=== PATIENT | female | born 1965 | race Caucasian/White ===

== ENCOUNTER 2016-08-21 08:26 | Day surgery (SDC) | payer OTHER ==
[~2016-08-21 08:26] MED LIST: RINGERS SOLUTION,LACTATED 1,000 ML IV PRN
[2016-08-21 08:48] LABS: Hematocrit 41.9 % (37.0-47.0); Hemoglobin 13.9 gm/dL (12.5-16.0); Mean Cell Volume 88.8 fl (78-100); Mean Corpuscular Hemoglobin 29.4 pg (27-31); Mean Corpuscular Hgb Conc 33.2 g/dl (32-36); Mean Platelet Volume 9.4 fl (6.0-9.5); Neutrophil # 4.8 K/mm3 (1.3-6.0); Neutrophil % 61.4 % (42-75.0); Platelet Count 313 K/mm3 (150-450); Red Blood Count 4.72 M/mm3 (4.2-5.4); Red Cell Distribution Width 11.9 % (11.5-14.0); White Blood Count 7.8 K/mm3 (4.0-10.5)
[2016-08-21] MEDS ORDERED: RINGERS SOLUTION,LACTATED 1,000 ML IV ONE (09:09)
[2016-08-21] MEDS ORDERED: oxyCODONE HCL/ACETAMINOPHEN 1 TAB TABLET PO PRN (10:23)
[2016-08-21] MEDS ORDERED: IBUPROFEN 600 MG TABLET PO PRN (10:24)
--- NOTE | 2016-08-21 10:24 | OR ---
Operative Report - Dictated Report Narrative: Operative Report 08/21/16 Hysteroscopy Dilatation and Curettage Preoperative Diagnosis: Menometrorrhagia Postoperative Diagnosis: Menometrorrhagia Procedure: Hysteroscopy Dilatation and Curettage Surgeon: Zehra Gaytan M.D. Anesthesia: Trevon Morrow PATCH PRESS OPERATOR, IV sedation Findings: Uterine sound 9 cm. Patient bleeding at the time of surgery. Small 1 cm submucosal fibroid on the posterior aspect of the endometrium. No evidence of polyp Fluids: 350 ml EBL: Minimal Drains: None Complications: None Condition: Stable Pathology: Endometrial curettings Procedure: The patient was taken to the operating room with IV fluids running. She was placed in the dorsal lithotomy position after anesthesia was induced. A bivalve speculum was placed in the vagina. The anterior lip of the cervix was grasped with a single-tooth tenaculum. Uterine sound was passed into the endometrial cavity with ease. Uterine sound was 9 cm. The cervix was dilated with Shant dilators. The hysteroscope was introduced into the endometrial cavity. The cavity was distended with normal saline. [place] were visualized bilaterally. Small 1 cm submucosal fibroid visualized on the posterior aspect of the endometrium. The hysteroscope was removed. The cavity was sharply curetted without difficulty. The hysteroscope was once again introduced into the cavity. Again, fibroid was visualized. The cavity was completely curetted. The hysteroscope was removed. The single-tooth tenaculum was removed. Sites were hemostatic. The speculum was removed from the vagina. Sponge counts were correct 2. The patient tolerated the procedure well.
[2016-08-21 11:23] VITALS: BP 110/68
== END 2016-08-21 08:27 | disposition home or self-care (01) ==
LOC: AMB 08:26
PROVIDERS: ATTEND Obstetrics & Gynecology
PROC: 0UDB8ZX Extraction of Endometrium, Via Natural or Artificial Opening Endoscopic, Diagnostic (ICD-10-PCS; principal; 2016-08-21 09:30)
DX: D25.0 Submucous leiomyoma of uterus (principal); N92.1 Excessive and frequent menstruation with irregular cycle; E66.9 Obesity, unspecified; Z68.34 Body mass index [BMI] 34.0-34.9, adult; Z87.891 Personal history of nicotine dependence

== ENCOUNTER 2016-12-23 14:38 | Emergency (ER) | payer OTHER ==
[2016-12-23 14:48] VITALS: BP 143/79
--- OUTSIDE RECORDS SUMMARY | 2016-12-23 14:56 | XMS REPORT | Continuity of Care Document ---
:1965 Author Organization [facility] ([facility]) Address [address] [place] [address] Phone [phone] Care Team Providers Name Role Phone Javier Moreland Primary Care Provider [phone] Source Comments This disclosure is being made pursuant to the Care Everywhere program, applicable federal and state laws, and may not contain all informaitonavailable regarding this patient.[facility] ([facility]) Active Allergies and Adverse Reactions Allergen Noted Date Severity Reactions Comments Other Agent 12/18/2012 OTHER "all antidepressants" Sulfa (Sulfonamide 12/29/2012 OTHER Her lymph nodes swell up. Antibiotics) Tetracycline 12/18/2012 OTHER Swelling Current Medications Prescription Sig. Disp. Refills Start Date End Date Status albuterol 90 Use 2 Puffs by 1 Inhaler 2 12/29/2012 Active mcg/Actuation inhaler inhalation every 6 hours as needed. Indications: cough beclomethasone (QVAR) Use 1 Puff by 1 Inhaler 1 12/29/2012 Active 80 mcg/Actuation inhalation 2 times inhaler daily. Indications: cough/SOBOE albuterol 2.5 mg/3 mL Use 3 mL by 1 Package 3 12/29/2012 Active inhalation solution inhalation every 6 hours as needed. Indications: cough/SOBOE omeprazole 20 mg Take 1 Cap by 60 Cap 3 02/17/2013 Active extended release mouth daily. capsule Indications: HEARTBURN Active Problems Problem Noted Date Cough with sputum 12/29/2012 SOBOE (shortness of breath on exertion) 12/29/2012 Healthcare maintenance 12/29/2012 Health education/counseling 12/29/2012 Most Recent Encounters Date Type Specialty Providers Description 10/02/2016 Lab Requisition Pathology Lab Services, [facility] Dx: Lipoma of right lower extremity Social History Tobacco Use Types Packs/Day Years Used Date Former Smoker Cigarettes Quit: 05/11/2008 Smokeless Tobacco: Never Used Tobacco Cessation:Counseling Given: Yes Comments:occ smoked Alcohol Use Drinks/Week oz/Week Comments No Last Filed Vital Signs Vital Sign Reading Time Taken Blood Pressure 134/82 06/01/2013 1:28 PM RN ANESTHESIOLOGY Pulse 81 06/01/2013 1:28 PM RN ANESTHESIOLOGY Temperature 37 C (98.6 F) 06/01/2013 1:28 PM RN ANESTHESIOLOGY Respiratory Rate 14 12/18/2012 10:47 AM CDT Height 1.554 m (5' 1.18") 05/11/2013 8:28 AM CDT Weight 87.2 kg (192 lb 3.9 oz) 06/01/2013 1:28 PM RN ANESTHESIOLOGY Body Mass Index 36.11 06/01/2013 1:28 PM RN ANESTHESIOLOGY Oxygen Saturation 99% 12/18/2012 10:47 AM CDT Plan of Care Patient Goal Type Goal Diet Reduce sugar intake Increase water intake Health Maintenance Due Date Last Done Comments Hepatitis B Vaccine (1 of 3 - 1965 Primary Series) Tdap Vaccine 1974 MMR Vaccine 1981 Cervical Cancer Screening 1993 Colonoscopy 08/04/2013 Mammogram 02/17/2014 02/17/2013, 08/15/2012, 08/15/2011 Influenza Vaccine: Seasonal (#1) 02/13/2016 Lipid Disorder Screening 12/29/2017 12/29/2012 Td Vaccine 01/21/2018 01/22/2008 HCV Screening Completed 02/17/2013 Results from Last 3 Months DERMATOPATHOLOGY EXAM (09/28/2016 4:13 PM) Component Value Range Case Report Surgical Pathology Case: [id number] Authorizing Provider:Lab Services, [facility] Collected: 09/28/2016 04:13 PM Pathologist: Selina Mathews MD Received:10/02/2016 04:13 PM Specimen:Tissue, specify, R anterior proximal thigh Diagnosis Skin, R anterior proximal thigh, excision: Angiolipoma I have personally reviewed this case and edited the report as necessary. Clinical Information Tissue source/site: Skin - excision - R anterior proximal thigh. Pertinent clinical history and findings: 2 cm soft moveable subcutaneous tumor. Clinical differential diagnosis: Lipoma. Gross Description A.Received in formalin, in a container labeled Carli Elizabeth, date of , and "R anterior proximal thigh", is a 2.3 x 1.9 x 1.5 cm yellow-santamaria, firm, ovoid shaped soft tissue mass. The exte rnal surface is smooth and entirely inked blue.The cut surfaces are yellow-santamaria, glistening without evidence of hemorrhage or necrosis. Returns Clerk sections are submitted in A1-A2. ESF/rls Microscopic Description Sections show a normal epidermis and dermis associated with a subcutaneous proliferation of benign lipocytes with a loss of the normal lobular growth pattern associated with thin-walled blood vesselsand focal thrombosis. Specimen Skin - Tissue, specify
[2016-12-23] MEDS ORDERED: METHYLPREDNISOLONE SOD SUCC/PF 40 MG/ML VIAL IV ONE (14:57)
[2016-12-23] MEDS ORDERED: diphenhydrAMINE HCL 50 MG CAPSULE PO ONE ×2 (14:58→15:03)
[2016-12-23] MEDS ORDERED: METHYLPREDNISOLONE SOD SUCC/PF 40 MG/ML VIAL IM ONE (15:02)
[2016-12-23] MEDS ORDERED: METHYLPREDNISOLONE SOD SUCC/PF 125 MG/2 ML VIAL ONE (15:03)
--- NOTE | 2016-12-23 15:49 | ERNOTE ---
Integumentary HPI - Narrative Date of Service: 12/23/16 - General Presenting Symptoms: rash Time Seen by Provider: 12/23/16 14:51 Exam Limitations: no limitations - Immun/Allergies/Home Medications Immunizations: IMMUNIZATION HX Immunizations Up to Date Yes History of Influenza Vaccine More Information Required Hx Pneumococcal Vaccination More Information Required Allergies/Adverse Reactions: Allergies Allergy/AdvReac Type Severity Reaction Status Date / Time Sulfa (Sulfonamide Allergy Severe Anaphylaxis Verified 12/23/16 14:48 Antibiotics) venlafaxine HCl Allergy Severe Anaphylaxis Verified 12/23/16 14:48 [From Effexor] doxycycline Allergy Intermediate Hives Verified 12/23/16 14:48 tetracycline [Tetracycline] Allergy Intermediate Hives Verified 12/23/16 14:48 lidocaine Allergy Verified 12/23/16 14:48 sulfamethoxazole Allergy Verified 12/23/16 14:48 [From Bactrim] trimethoprim [From Bactrim] Allergy Verified 12/23/16 14:48 procaine HCl [From Novocain] AdvReac Intermediate Vomiting Verified 12/23/16 14: 48 Home Medications: HOME MEDICATIONS Calcium/Magnesium/Zinc [Cixyfxr-Rjferefgd-Rrwe Tablet] 2 tab PO DAILY 08/16/16 [ Last Taken Unknown] Multivitamin [One Daily Essential] 1 each PO DAILY 08/16/16 [Last Taken Unknown] Ibuprofen [Motrin] 600 mg PO Q6H PRN #30 tab 08/21/16 [Last Taken Unknown] predniSONE [Prednisone] 50 mg PO DAILY #5 tablet 12/23/16 [Last Taken Unknown] - History of Present Illness Narrative: 51-year-old female presents to the emergency room for a rash that started on her neck has now spread across her chest and into her right arm and before meals area. Patient states she also has a under her eyes and both her ears. She states that she did have a thyroid biopsy on Saturday on the right side of her neck, and this is where the rash didn't start. She also states that she think that she has had poison kayleen or poison sumac contact. Date (Duration): 12/23/16 Location: Reports: neck, facial, upper extremity Quality: Reports: itching Severity: mild Exposure: Reports: poison kayleen/oak Modifying Factors - (Improves): Reports: nothing Modifying Factors - (Worsens): Reports: scratching Associated Symptoms: Reports: rash, change in skin texture. Denies: fever Review of Systems - Review of Systems Constitutional: Present: See HPI EYE: Present: no symptoms reported ENT: Present: no symptoms reported Respiratory: Present: no symptoms reported Cardiology: Present: no symptoms reported Gastrointestinal/Abdominal: Present: no symptoms reported Genitourinary: Present: no symptoms reported Musculoskeletal: Present: no symptoms reported Skin: Present: See HPI, rash, change in color Neurological: Present: no symptoms reported Endocrine: Present: no symptoms reported Hematologic/Lymphatic: Present: no symptoms reported Psych: Present: no symptoms reported All Other Systems: All systems neg except as marked - Patient's Past Medical History Patient History - Medical: Other Patient History - Cardiac/Respiratory: No pertinent hx Patient History - Cancer: No Hx of Cancer Patient History - Surgical Procedures: , D & C, T & A, Other Patient History - Other: None LMP (Calendar): 05/30/16 - Family History Mother Family History - Medical: No pertinent hx Family History - Cardiac/Respiratory: No pertinent hx Family History - Cancer: No pertinent family hx - Social History Living Situations: spouse Abuse History: No History of abuse Psych History: No pertinent hx Smoking Status: Never smoker Alcohol Use: none Drug Use: none - Immunizations Immunizations Up to Date: Yes Hx Pneumococcal Vaccination: More Information Required to Determine History of Influenza Vaccine: More Information Required to Determine Physical Exam - Physical Exam Narrative: This patient has a red rash across her neck and chest 2 spots on her face right before meals on her arm and along her right bicep. Rash is red raised and firm. Patient feels it is consistent with the last time she had poison kayleen. General Appearance: Present: wd/wn, alert, no apparent distress Eye Exam: Normal inspection: bilateral Ears, Nose, Throat: Present: normal ENT inspection Neck: Present: nontender, supple, full range of motion, other - rash Respiratory: Present: no respiratory distress, normal breath sounds, no accessory muscle use, chest nontender, lungs clear. Absent: respiratory distress, crackles, rales, rhonchi, stridor, wheezing Cardiovascular/Chest: Present: regular rate, rhythm, no murmur, normal peripheral pulses Gastrointestinal/Abdominal: Present: normal bowel sounds, nontender, nondistended, soft, no organomegaly Rectal Exam: Present: nontender, normal rectal tone Back Exam: Present: normal inspection, normal range of motion, no CVA tenderness , no vertebral tenderness Extremity Exam: Present: normal inspection, non-tender, normal range of motion Neurological Exam: Present: alert, oriented, normal mood/affect, no motor/ sensory deficits Skin Exam: Present: skin rash Lymphatic Exam: Present: no adenopathy ED Progress - Vital Signs Patient's Vital Signs:: I have reviewed the patient's vital signs. Vital Signs: Vital Signs 12/23/16 14:40 Temperature 36.7 C Pulse Rate 65 Respiratory 16 Rate Blood Pressure 143/79 O2 Sat by Pulse 97 Oximetry - Progress/Reassessment Chief Complaint: Rash Progress:: Improved Plan - Plan Plan: Patient states that after medication she does feel better the rash has dissipated from her face and it is no longer as itchy. Departure Clinical Impression: Poison kayleen dermatitis - Departure Disposition: Home Follow Up Needed Condition: Stable Instructions: Poison Kayleen Dermatitis Additional Instructions: Continue previous medications as prescribed. Take all medications as prescribed. Return to the emergency rooms if symptoms return or persist. She may take [id number] Benadryl as needed for itching. Follow up with her primary care provider in the next few days if needed. Referrals: Gabriel Ibarra MD [Primary Care Provider] - Prescriptions: predniSONE [Prednisone] 50 mg PO DAILY #5 tablet
== END 2016-12-23 15:44 | disposition home or self-care (01) ==
LOC: ER 14:38
DX: L23.7 Allergic contact dermatitis due to plants, except food (principal)

== ENCOUNTER 2016-12-26 10:46 | Emergency (ER) | payer OTHER ==
[2016-12-26 10:54] VITALS: BP 148/79
[2016-12-26] MEDS ORDERED: diphenhydrAMINE HCL 50 MG/ML VIAL IV ONE (11:05)
[2016-12-26] MEDS ORDERED: DEXAMETHASONE SOD PHOSPHATE 10 MG/ML VIAL IV ONE (11:05)
[2016-12-26] MEDS ORDERED: FAMOTIDINE 10 MG/ML VIAL IV ONE ×2 (11:05→11:10)
[2016-12-26] MEDS ORDERED: diphenhydrAMINE HCL 50 MG/ML VIAL ONE (11:09)
[2016-12-26] MEDS ORDERED: DEXAMETHASONE SOD PHOSPHATE 10 MG/ML VIAL ONE (11:09)
[2016-12-26 11:21] LABS: Hematocrit 40.8 % (37.0-47.0); Hemoglobin 13.8 gm/dL (12.5-16.0); Mean Cell Volume 87.4 fl (78-100); Mean Corpuscular Hemoglobin 29.6 pg (27-31); Mean Corpuscular Hgb Conc 33.8 g/dl (32-36); Mean Platelet Volume 9.9 fl (6.0-9.5); Neutrophil # 15.7 K/mm3 (1.3-6.0); Neutrophil % 80.7 % (42-75.0); Platelet Count 317 K/mm3 (150-450); Red Blood Count 4.67 M/mm3 (4.2-5.4); Red Cell Distribution Width 13.7 % (11.5-14.0); White Blood Count 19.4 K/mm3 (4.0-10.5)
[2016-12-26 11:37] LABS: Albumin * 3.5 gm/dl (3.4-5.0); Anion Gap 12.9 mmol/L (6.8-13.8); BUN/Creatinine Ratio 21.3 (9.0-21.6); Bilirubin, Total 0.3 mg/dL (0.0-1.1); Calcium * 8.9 mg/dL (7.9-10.9); Carbon Dioxide 27.8 mmol/L (24-32.6); Potassium 3.7 mmol/L (3.4-4.6); Total Protein 6.9 gm/dL (6.2-8.2)
--- OUTSIDE RECORDS SUMMARY | 2016-12-26 11:42 | XMS REPORT | Continuity of Care Document ---
:1965 Author Organization [facility] ([facility]) Address [address] [place] [address] Phone [phone] Care Team Providers Name Role Phone Javier Moreland Primary Care Provider [phone] Source Comments This disclosure is being made pursuant to the Care Everywhere program, applicable federal and state laws, and may not contain all informaitonavailable regarding this patient.[facility] ([facility]) Active Allergies and Adverse Reactions Allergen [...] Description 10/02/2016 Lab Requisition Pathology Lab Services, [facility] Dx: Lipoma of right lower extremity Social History Tobacco Use Types Packs/Day Years Used Date Former Smoker Cigarettes Quit: 05/11/2008 Smokeless Tobacco: Never Used Tobacco Cessation:Counseling Given: Yes Comments:occ smoked Alcohol Use Drinks/Week oz/Week Comments No Last Filed Vital Signs Vital Sign Reading Time Taken Blood Pressure 134/82 06/01/2013 1:28 PM CHIEF DIGITAL OFFICER Pulse 81 06/01/2013 1:28 PM CHIEF DIGITAL OFFICER Temperature 37 C (98.6 F) 06/01/2013 1:28 PM CHIEF DIGITAL OFFICER Respiratory Rate 14 12/18/2012 10:47 AM CDT Height 1.554 m (5' 1.18") 05/11/2013 8:28 AM CDT Weight 87.2 kg (192 lb 3.9 oz) 06/01/2013 1:28 PM CHIEF DIGITAL OFFICER Body Mass Index 36.11 06/01/2013 1:28 PM CHIEF DIGITAL OFFICER Oxygen Saturation 99% 12/18/2012 10:47 AM CDT [...] Value Range Case Report Surgical Pathology Case: [id number] Authorizing Provider:Lab Services, [facility] Collected: 09/28/2016 04:13 PM Pathologist: Selina Mathews [...] glistening without evidence of hemorrhage or necrosis. Offset Assistant Press Operator sections are submitted in A1-A2. ESF/rls Microscopic Description Sections show a normal epidermis and dermis associated with a subcutaneous proliferation of benign lipocytes with a loss of the normal lobular growth pattern associated with thin-walled blood vesselsand focal thrombosis. Specimen Skin - Tissue, specify
--- NOTE | 2016-12-26 11:44 | ERNOTE ---
Date of Service: 12/26/16 Time Seen by Provider: 12/26/16 10:56 Stated Complaint: REACTION TO LIDOCAINE - RASH, CANT SPEAK Source: patient Exam Limitations: no limitations Immunizations: IMMUNIZATION HX Immunizations Up to Date Yes History of Influenza Vaccine More Information Required Hx Pneumococcal Vaccination More Information Required Allergies/Adverse Reactions: Allergies Sulfa (Sulfonamide Antibiotics) Allergy (Severe, Verified 12/26/16 10:54) Anaphylaxis venlafaxine HCl [From Effexor] Allergy (Severe, Verified 12/26/16 10:54) Anaphylaxis doxycycline Allergy (Intermediate, Verified 12/26/16 10:54) Hives tetracycline [Tetracycline] Allergy (Intermediate, Verified 12/26/16 10:54) Hives lidocaine Allergy (Verified 12/26/16 10:54) sulfamethoxazole [From Bactrim] Allergy (Verified 12/26/16 10:54) trimethoprim [From Bactrim] Allergy (Verified 12/26/16 10:54) procaine HCl [From Novocain] Adverse Reaction (Intermediate, Verified 12/26/16 10:54) Vomiting SWEATING, MIGRANE Home Medications: HOME MEDICATIONS Calcium/Magnesium/Zinc [Gjppsel-Myylbgnhl-Eyxl Tablet] 2 tab PO DAILY 08/16/16 [ Last Taken Unknown] Multivitamin [One Daily Essential] 1 each PO DAILY 08/16/16 [Last Taken Unknown] Ibuprofen [Motrin] 600 mg PO Q6H PRN #30 tab 08/21/16 [Last Taken Unknown] predniSONE [Prednisone] 50 mg PO DAILY #5 tablet 12/23/16 [Last Taken Unknown] Famotidine [Pepcid] 40 mg PO BID #30 tablet 12/26/16 [Last Taken Unknown] predniSONE [Prednisone] See Taper PO DAILY #21 tablet 12/26/16 [Last Taken Unknown] - History of Present Ilness Narrative: Pt. comes in with c/o diffuse rash, throat swelling, SOB for a week. Pt. had a procedure to biopsy nodules on her vocal cords 6 days ago and developed anaphylaxis when the doctor used lidocaine for the procedure. Pt. states that she was seen here on Saturday and felt improved for a few hours but worsened again and has been steadily worsening until this morning. Pt. has been taking Benadryl and prednisone as ordered. Timing: getting worse Review of Systems - Review of Systems Constitutional: Present: no symptoms reported. Absent: recent illness, fever, chills, weakness, fatigue, malaise EYE: Present: no symptoms reported ENT: Present: throat swelling. Absent: nose congestion, nasal drainage, sore throat Respiratory: Present: shortness of breath, cough, wheezing Cardiology: Absent: chest pain, palpitations, edema Gastrointestinal/Abdominal: Present: no symptoms reported. Absent: nausea, vomiting, diarrhea Genitourinary: Present: no symptoms reported. Absent: frequency, decreased urinary output Musculoskeletal: Present: no symptoms reported. Absent: back pain, joint pain Skin: Present: rash. Absent: change in hair/nails Neurological: Present: no symptoms reported. Absent: headache, dizziness/light- headedness, numbness, tingling All Other Systems: All systems neg except as marked - Patient's Past Medical History Patient History - Medical: Other - allergies Patient History - Cardiac/Respiratory: No pertinent hx Patient History - Cancer: No Hx of Cancer Patient History - Surgical Procedures: , D & C, T & A, Other Patient History - Other: None LMP (Calendar): 05/30/16 - Family History Mother Family History - Medical: No pertinent hx Family History - Cardiac/Respiratory: No pertinent hx Family History - Cancer: No pertinent family hx - Social History Living Situations: spouse Abuse History: No History of abuse Psych History: No pertinent hx Smoking Status: Never smoker Have you smoked in the past 12 months: No Alcohol Use: none Drug Use: none - Immunizations Immunizations Up to Date: Yes Hx Pneumococcal Vaccination: More Information Required to Determine History of Influenza Vaccine: More Information Required to Determine Physical Exam - Physical Exam General Appearance: Present: wd/wn, alert, no apparent distress Eye Exam: Normal inspection: bilateral, PERRL: bilateral, EOMI: bilateral Ears, Nose, Throat: Present: pharyngeal swelling - mild, tonsillar exudate - clear Respiratory: Present: no respiratory distress, normal breath sounds, no accessory muscle use, chest nontender, lungs clear. Absent: rales, stridor, wheezing Cardiovascular/Chest: Present: regular rate, rhythm, no murmur, normal peripheral pulses Gastrointestinal/Abdominal: Present: normal bowel sounds, nontender, nondistended, soft, no organomegaly Back Exam: Present: normal inspection, normal range of motion, no CVA tenderness , no vertebral tenderness Extremity Exam: Present: normal inspection, non-tender, normal range of motion, no edema Neurological Exam: Present: alert, oriented, normal mood/affect, no motor/ sensory deficits, arrow point attacher II-XII nml as tested, normal cerebellar test Skin Exam: Present: normal color, warm/dry, skin rash - diffuse hivelike neck, chest, and arms. Absent: pallor ED Progress - Results and Orders Patient's Lab Results:: I have reviewed the patient's lab results. - Vital Signs Patient's Vital Signs:: I have reviewed the patient's vital signs. Vital Signs: Vital Signs 12/26/16 10:50 Temperature 37.1 C Pulse Rate 79 Respiratory 14 Rate Blood Pressure 148/79 O2 Sat by Pulse 97 Oximetry - X-Ray X-Ray #1 X-Ray: chest Interpretation: Reviewed by me X-ray Comments: no acute cp process X-Ray #2 X-Ray: soft tissue neck Interpretation: Reviewed by me X-ray Comments: No laryngio epigottal or tracheo stenosis noted. - Progress/Reassessment Chief Complaint: Upper Respiratory Symptoms Departure - Departure Clinical Impression: Angioedema Qualifiers: Encounter type: subsequent encounter Qualified Code(s): T78.3XXD - Angioneurotic edema, subsequent encounter Disposition: Home self-care Condition: Good Instructions: Angioedema, [id number] Additional Instructions: Please follow up with Dr Ibarra as scheduled tomorrow and take Benadryl 50mg every 6 hours. Referrals: Gabriel Ibarra MD [Primary Care Provider] - Prescriptions: Famotidine [Pepcid] 40 mg PO BID #30 tablet predniSONE [Prednisone] See Taper PO DAILY #21 tablet
== END 2016-12-26 12:30 | disposition home or self-care (01) ==
LOC: ER 10:46
DX: T78.3XXD Angioneurotic edema, subsequent encounter (principal); Z98.890 Other specified postprocedural states

== ENCOUNTER 2016-12-29 06:46 | Emergency (ER) | payer OTHER ==
--- NOTE | 2016-12-29 07:18 | ERNOTE ---
Date of Service: 12/29/16 Time Seen by Provider: 12/29/16 07:11 Stated Complaint: CAN'T BREATHE Presenting Symptoms:: cough Source: patient Exam Limitations: no limitations Immunizations: IMMUNIZATION HX Immunizations Up to Date Yes History of Influenza Vaccine More Information Required Hx Pneumococcal Vaccination More Information Required Allergies/Adverse Reactions: Allergies Sulfa (Sulfonamide Antibiotics) Allergy (Severe, Verified 12/29/16 07:09) Anaphylaxis venlafaxine HCl [From Effexor] Allergy (Severe, Verified 12/29/16 07:09) Anaphylaxis doxycycline Allergy (Intermediate, Verified 12/29/16 07:09) Hives tetracycline [Tetracycline] Allergy (Intermediate, Verified 12/29/16 07:09) Hives lidocaine Allergy (Verified 12/29/16 07:09) sulfamethoxazole [From Bactrim] Allergy (Verified 12/29/16 07:09) trimethoprim [From Bactrim] Allergy (Verified 12/29/16 07:09) procaine HCl [From Novocain] Adverse Reaction (Intermediate, Verified 12/29/16 07:09) Vomiting SWEATING, MIGRANE Home Medications: HOME MEDICATIONS Calcium/Magnesium/Zinc [Seijvpk-Ukovmhmox-Veie Tablet] 2 tab PO DAILY 08/16/16 [ Last Taken Unknown] Multivitamin [One Daily Essential] 1 each PO DAILY 08/16/16 [Last Taken Unknown] Ibuprofen [Motrin] 600 mg PO Q6H PRN #30 tab 08/21/16 [Last Taken Unknown] predniSONE [Prednisone] 50 mg PO DAILY #5 tablet 12/23/16 [Last Taken Unknown] Famotidine [Pepcid] 40 mg PO BID #30 tablet 12/26/16 [Last Taken Unknown] Albuterol Sulfate [Albuterol Sulfate 2.5 MG/3 ML] 2.5 mg IH Q4H PRN #25 vial.neb 12/29/16 [Last Taken Unknown] Azithromycin [Zithromax] 250 mg PO DAILY 12/29/16 [Last Taken Unknown] - History of Present Ilness Narrative: PT WITH C/O COUGH . WORRIED HER IMMUNE SYSTEM IS " SHOT" BECAUSE SHE HAS BEEN ON RECENT STEROIDS AFTER SHE RECEIVED LIDOCAINE FOR A THYROID PROCEDURE ON 21 DECEMBER AND SHE IS ALLERGIC TO LIDOCAINE. HER PCP STARTED HER ON AZITHROMYCIN ON . SHE HAS ALSO BEEN USING BENADRYL AND PEPCID BECAUSE OF THE ALLERGIC REACTION. HER RASH IS GONE. SHE IS WORRIED HER LUNGS ARE "COMPRISED" AND STATES SHE HAS NEBULIZER AT HOME THAT SHE USES WHEN SHE HAS BRONCHITIS WITH ALBUTEROL BUT IS NOT CURRENTLY USING. THERE IS NO HX. OF FEVER OR HYPOXEMIA. SHE DENIES BEING A SMOKER OR LIVING WITH A SMOKER. SHE SAYS MAYBE SHE HAS A "BLOOD COT OR SOMETHING" WHEN LAST SEEN HERE IN THE ER ON 26 DECEMBER SHE HAD W/U WITH LABS AND CXR AND SOFT TISSUE NECK XRAY AND ALL WAS NEGATIVE EXCEPT FOR WBC = 19K, AFTER SHE HAD STARTED STEROIDS. - Patient's Past Medical History Patient History - Medical: Anxiety, Depression, Obesity, Other - R. THYROID NODULE. HX OF SINUSITIS Patient History - Cardiac/Respiratory: No pertinent hx, Bronchitis Patient History - Cancer: No Hx of Cancer Patient History - Surgical Procedures: , D & C, T & A, Other Patient History - Other: None LMP (females 10-50): Menopausal LMP (Calendar): 05/30/16 - Family History Mother Family History - Medical: No pertinent hx Family History - Cardiac/Respiratory: No pertinent hx Family History - Cancer: No pertinent family hx - Social History Living Situations: home Abuse History: No History of abuse Psych History: No pertinent hx Smoking Status: Never smoker Alcohol Use: none Drug Use: none - Immunizations Immunizations Up to Date: Yes Hx Pneumococcal Vaccination: More Information Required to Determine History of Influenza Vaccine: More Information Required to Determine Physical Exam - Physical Exam General Appearance: Present: wd/wn, alert, anxious - OCC NON PRODUCTIVE HACKY COUGH. VSS EXCEPT FOR INTIAL BP BEING ELEVATED. NO DYSPNEA AND GOOD O2 SAT ON ROOM AIR. Eye Exam: Normal inspection: bilateral Ears, Nose, Throat: Present: normal except -, nasal congestion - MILD. , normal pharynx Neck: Present: normal inspection, nontender Respiratory: Present: no respiratory distress, normal breath sounds, no accessory muscle use, chest nontender, lungs clear Cardiovascular/Chest: Present: regular rate, rhythm, no murmur, normal peripheral pulses Neurological Exam: Present: alert, oriented Skin Exam: Present: normal color ED Progress - Date and Time Seen: Date and Time: 12/29/16 08:52 I REVIEWED ALL OF PT'S PREVIOUS ER VISITS GOING BACK TO 2014. I FIND NO PRIOR MENTION OF BRONCHITIS OR ASTHMA OR ASTHMATIC BRONCHITIS THOUGH SHE HAS HAD 3 PRIOR VISITS FOR URI/ SINUSITIS EPISODES. - Vital Signs Patient's Vital Signs:: I have reviewed the patient's vital signs. Vital Signs: Vital Signs 12/29/16 07:03 Temperature 36.5 C Pulse Rate 72 Respiratory 16 Rate Blood Pressure 152/110 O2 Sat by Pulse 98 Oximetry - Progress/Reassessment Chief Complaint: Cough Progress:: Improved - PT REFUSES LAB TESTING AFTER SHE SUGGESTED SHE HAD CONCERNS ABOUT P.E AND LUNG "COMPROMISE". I THEN ASKED HER WHAT ELSE SHE WOULD LIKE ME TO DO BUT SINCE SHE SAYS THE NEB TREATMENT DID HELP SO SHE WOULD LIKE ME TO WRITE FOR ALBUTEROL SINCE SHE THINKS WHAT SHE HAS AT HOME MAY BE . Departure - Departure Clinical Impression: Chronic coughing Disposition: Home Follow Up Needed Condition: Good Instructions: Bronchospasm, Adult Additional Instructions: TRIAL OF ADDING THE ALBUTEROL WITH NEBULIZER FOR YOUR COUGH. TRIAL GARGLING WITH WARM SALT WATER. OFTEN WARM TEA WITH HONEY OR LEMON HELP MORE THAT ANY COUGH MEDICATIONS. THROAT LOZENGES MAY DECREASE THE THROAT TICKLE OR IRRITATION THAT IS OFTEN THE CAUSE OF CHRONIC COUGH. SEE YOUR FAMILY DOCTOR IF HAVING ANY FURTHER PROBLEMS. Referrals: Gabriel Ibarra MD [Primary Care Provider] - Prescriptions: Albuterol Sulfate [Albuterol Sulfate 2.5 MG/3 ML] 2.5 mg IH Q4H PRN #25 vial.neb PRN Reason: Cough
--- OUTSIDE RECORDS SUMMARY | 2016-12-29 07:19 | XMS REPORT | Continuity of Care Document ---
:1965 Author Organization [facility] ([facility]) Address [address] [place] [address] Phone [phone] Care Team Providers Name Role Phone Javier Moreland Primary Care Provider [phone] Source Comments This disclosure is being made pursuant to the Care Everywhere program, applicable federal and state laws, and may not contain all informaitonavailable regarding this patient.[facility] ([facility]) Active Allergies and Adverse Reactions Allergen [...] Description 10/02/2016 Lab Requisition Pathology [facility] Dx: Lipoma of right lower extremity Social History Tobacco Use Types Packs/Day Years Used Date Former Smoker Cigarettes Quit: 05/11/2008 Smokeless Tobacco: Never Used Tobacco Cessation:Counseling Given: Yes Comments:occ smoked Alcohol Use Drinks/Week oz/Week Comments No Last Filed Vital Signs Vital Sign Reading Time Taken Blood Pressure 134/82 06/01/2013 1:28 PM [employer]IOR [employer] Pulse 81 06/01/2013 1:28 PM [employer]IOR [employer]IST Temperature 37 C (98.6 F) 06/01/2013 1:28 PM 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 Audit Reviewer sections are submitted in [id number]. ESF/rls Microscopic Description Sections show a normal epidermis and dermis associated with a subcutaneous proliferation of benign lipocytes with a loss of the normal lobular growth pattern associated with thin-walled blood vesselsand focal thrombosis. Specimen Skin - Tissue, specify
[2016-12-29] MEDS ORDERED: ALBUTEROL SULFATE/IPRATROPIUM 3 ML NEBU IH ONE ×2 (07:35→07:53)
[2016-12-29 08:44] VITALS: BP 150/98
== END 2016-12-29 08:45 | disposition home or self-care (01) ==
LOC: ER 06:46
DX: R05 Cough (principal)